=== PATIENT | female | born 1990 | race African-American/Black ===

== ENCOUNTER 2024-02-25 18:11 | Emergency (ER) | payer OTHER ==
[~2024-02-25] VITALS: Ht 157.5 cm; Wt 71.0 kg
[2024-02-25 18:22] VITALS: O2SAT 100
[2024-02-25 18:23] VITALS: BP 112/64; PULSE 73; RESP 16; TEMP 98.6; O2SAT 98
[2024-02-25 22:48] LABS: CLARITY URINE CLEAR (CLEAR); COLOR URINE YELLOW (YELLOW); PROTEIN URINE NEGATIVE (NEGATIVE)
[2024-02-25 22:49] LABS: GLUCOSE URINE NEGATIVE (NEGATIVE); KETONES URINE 2+ (NEGATIVE); LEUKOCYTE ESTERASE URINE NEGATIVE (NEGATIVE); NITRITE URINE NEGATIVE (NEGATIVE); OCCULT BLOOD URINE NEGATIVE (NEGATIVE); UROBILINOGEN URINE 0.2 E.U./dL (0.2-1.0)
== END 2024-02-26 00:51 | disposition left against medical advice (07) ==
LOC: ER 18:11
DX: O26.891 Other specified pregnancy related conditions, first trimester (principal); Z3A.01 Less than 8 weeks gestation of pregnancy
CPT/HCPCS: 76801; 81003; 99284